=== PATIENT | male | born 1960 | race Two or more races ===

== ENCOUNTER 2016-08-23 11:52 | Emergency (ER) | payer OTHER ==
[~2016-08-23] VITALS: Ht 175.3 cm; Wt 77.1 kg
[~2016-08-23 11:52] MED LIST: CIPROFLOXACIN500 M2 ORAL; FLOMAX0.4 MG ORAL; IBUPROFEN600 MG ORAL; LEVAQUIN500 MG ORAL; NKM; NORCO 5-325 TA1 EACH ORAL; ONDANSETRON ODT4 MG ORAL
[2016-08-23 12:40] VITALS: BP 138/79
[2016-08-23 13:10] LABS: APPEARANCE,URINE CLEAR; KETONES,URINE NEGATIVE (NEGATIVE); LEUKOCYTE ESTERASE ,URINE 1+ (NEGATIVE); NITRITE,URINE NEGATIVE (NEGATIVE); PH,URINE 5 (4.5-8.0); PROTEIN,URINE NEGATIVE (NEGATIVE); UROBILINOGEN,URINE NORMAL MG/DL (0.0-1.0)
[2016-08-23 13:27] LABS: BACTERIA,URINE OCCASIONAL /HPF; CALCIUM OXALATE CRYSTALS,UR OCCASIONAL /LPF; SQUAMOUS EPITHELIAL CELL,UR OCCASIONAL /LPF (NONE/OCC)
--- NOTE | 2016-08-23 13:49 | Emergency Room Report ---
History of Present Illness General Chief Complaint: Pain Present Illness HPI 56-year-old male presents emergency department complaining of right-sided inguinal pain and right upper thigh pain x2 weeks. Patient denies nausea, vomiting, fevers, chills or abdominal pain. Patient reports that he took an Advil 2 days ago with minimal relief of his symptoms. Patient denies any appreciable fall, injury or strenuous activity. Patient denies constipation or diarrhea. he denies palpable mass in the inguinal area denies testicular pain. Pt is worried he may have UTI or appendicitis, denies frequency, urgency, dysuria, hematuria, or penile d/c. denies hx of STI or recent unprotect intercourse. He denies erythema or increased temperature palpation to the areas of his pain. Denies CP, Palpitations, LOC, AMS, dizziness, Changes in Vision, Sensation, paresthesias, or a sudden severe headache. Allergies: Coded Allergies: No Known Allergies (Unverified , 07/04/14) Patient History Past Medical History: see triage record Past Surgical History: none Pertinent Family History: none Reviewed Nursing Documentation: PMH: Agreed, PSxH: Agreed Nursing Documentation-PMH Hx Gastrointestinal Problems: Yes - KIDNEY STONES Review of Systems All Other Systems: negative except mentioned in HPI Physical Exam Vital Signs Date Time Temp Pulse Resp B/P Pulse Ox O2 Delivery O2 Flow Rate FiO2 08/23/16 12:01 98.1 76 16 138/79 98 Room Air Sp02 EP Interpretation: reviewed, normal General Appearance: no apparent distress, alert, GCS 15, non-toxic Head: normocephalic, atraumatic Eyes: bilateral eye PERRL, bilateral eye normal inspection ENT: hearing grossly normal, normal pharynx, no angioedema, normal voice Neck: full range of motion, supple/symm/no masses Respiratory: chest non-tender, lungs clear, normal breath sounds, speaking full sentences Cardiovascular #1: regular rate, rhythm, no edema Gastrointestinal: normal bowel sounds, non tender, soft, no mass, non-distended , no guarding, no hernia, no rebound Rectal: deferred Genitourinary: normal inspection, no CVA tenderness, penis normal, scrotum normal, other - no evidence of inguinal hernia, no evidence of femoral hernia. cremasteric reflex is present bilaterally, no testicular TTP, no erythema, no LAD Musculoskeletal: back normal, gait/station normal, normal range of motion, non- tender, no calf tenderness Neurologic: alert, oriented x3, responsive, motor strength/tone normal, sensory intact, speech normal Psychiatric: judgement/insight normal, memory normal, mood/affect normal, no suicidal/homicidal ideation Skin: normal color, no rash, warm/dry, well hydrated Lymphatic: no adenopathy Medical Decision Making PA Attestation Dr. Aparicio is my supervising Physician whom patient management has been discussed with. Diagnostic Impression: Primary Impression: Strain of right inguinal muscle Qualified Codes: S39.013A - Strain of muscle, fascia and tendon of pelvis, initial encounter Additional Impressions: Right inguinal pain Right thigh pain ER Course Pt. presents emergency department complaining of right-sided inguinal pain and right upper thigh pain x2 weeks, no fevers,chills, or erythema. Ddx considered but are not limited to Hernia, incarceration, LGV, gangrene, adenopathy, testicular torsion, epididymitis, orchitis, abscess, muscle strain Vital signs: are WNL, pt. is afebrile -Male teletype clerk: Emanuel -EMT present for PE. H&PE are most consistent with inguinal muscle strain /pain. This patient does not exhibit physical exam signs or symptoms that would indicate infection no obvious hernia is noted at this time. The testicles are uninvolved no evidence of torsion. Physical exam suggests musculoskeletal pain, most likely inguinal muscle strain. ORDERS: -UA: WNL no evidence of infection, evidence of contamination. - Testicular ultrasound not warranted as testicle is not involved based on PE. ED INTERVENTIONS: - none required at this time. - patient is stable for close outpatient follow up. - Discussed with patient that we'll be trying conservative treatment and to followup with his PCP for further evaluation if his symptoms continue. Discussed the patient's symptoms that would warrant immediate return to the emergency department. DISCHARGE: At this time pt. is stable for d/c to home. Will provide printed patient care instructions, and any necessary prescriptions. Care plan and follow up instructions have been discussed with the patient prior to discharge. Labs Test 08/23/16 12:55 Urine Color Pale yellow Urine Appearance Clear Urine pH 5 (4.5-8.0) Urine Specific [place] 1.025 (1.005-1.035) Urine Protein Negative (NEGATIVE) Urine Glucose (UA) Negative (NEGATIVE) Urine Ketones Negative (NEGATIVE) Urine Occult Blood 1+ (NEGATIVE) Urine Nitrite Negative (NEGATIVE) Urine Bilirubin Negative (NEGATIVE) Urine Urobilinogen Normal MG/DL (0.0-1.0) Urine Leukocyte Esterase 1+ (NEGATIVE) Urine RBC 2-4 /HPF (0 - 0) Urine WBC 2-4 /HPF (0 - 0) Urine Squamous Epithelial Cells Occasional /LPF Urine Calcium Oxalate Crystals Occasional /LPF (NONE) Urine Bacteria Occasional /HPF (NONE) Last Vital Signs Date Time Temp Pulse Resp B/P Pulse Ox O2 Delivery O2 Flow Rate FiO2 08/23/16 12:40 98.1 75 16 138/79 98 Room Air Disposition: HOME, SELF-CARE Condition: Stable Scripts Ibuprofen* (MOTRIN*) 600 Mg Tablet 600 MG ORAL THREE TIMES A DAY, #30 TAB 0 Refills Prov: Laurel Rodrigues 08/23/16 Patient Instructions: Muscle Strain Additional Instructions: Take medications as directed. Follow up with PCP in 3 days Return sooner to ED if new symptoms occur, or current symptoms become worse. Laurel Rodrigues Aug 23, 2016 13:49
[2016-08-23] MEDS ORDERED: IBUPROFEN600 MG ORAL (13:50)
[2016-08-23 13:55] VITALS: BP 134/75
[2016-08-23 13:56] VITALS: BP 134/75
== END 2016-08-23 13:55 | disposition home or self-care (01) ==
LOC: EMR 13:24
DX: S39.013A Strain of muscle, fascia and tendon of pelvis, initial encounter (principal); M79.651 Pain in right thigh; Z87.442 Personal history of urinary calculi; X58.XXXA Exposure to other specified factors, initial encounter; Y93.9 Activity, unspecified; Y92.9 Unspecified place or not applicable
CPT/HCPCS: 81003; 99282

== ENCOUNTER 2018-09-27 16:33 | Emergency (ER) | payer OTHER ==
[~2018-09-27] VITALS: Ht 175.3 cm; Wt 73.5 kg
--- NOTE | 2018-09-27 17:24 | NUR ---
ED Nurse Note: Pt came in from home due to to coughing with yellowish congestion, sorethroat, pain on L neck x 2 days. Pain 10/10 andrew. HR 105 upon arrival, PA aware. Will cont to monitor.
[2018-09-27 17:43] VITALS: BP 148/90
[2018-09-27] MEDS ORDERED: Lidocaine 2% Visc 15ml soln ORAL ONE (17:45)
[2018-09-27] MEDS ORDERED: Ketorolac 30mg Inj IM ONE (17:45)
[2018-09-27] MEDS ORDERED: CHILDREN'S160 MG/12 ORAL (17:57)
[2018-09-27] MEDS ORDERED: TAMIFLU75 MG ORAL (17:57)
[2018-09-27] MEDS ORDERED: CLARITIN10 M1 ORAL (17:57)
--- NOTE | 2018-09-27 17:57 | Emergency Room Report ---
History of Present Illness General Chief Complaint: Flu Like Symptoms Source: Patient Present Illness HPI 58-year-old male patient presents ER complaining of cough and flulike symptoms for 2 days. Reports sick contacts at home. Denies recent travel. Denies chest pain, shortness of breath. Denies history of heart attack or heart disease. Reports cough with sputum. Denies hemoptysis. Denies diarrhea or vomiting. States sore throat, reports pain with swallowing. Reports generalized aches and pains during this time. denies neck pain. Requesting liquid medication. Reports subjective fever and chills at home, currently afebrile in the ER. States his been taking [id number] medication for relief of symptoms.Denies other aggravating or relieving factors. Allergies: Coded Allergies: No Known Allergies (Unverified , 07/04/14) Patient History Past Medical History: see triage record Reviewed Nursing Documentation: PMH: Agreed; PSxH: Agreed Nursing Documentation-PMH Past Medical History: No Stated History Hx Gastrointestinal Problems: Yes - KIDNEY STONES Review of Systems All Other Systems: negative except mentioned in HPI Physical Exam Vital Signs Date Time Temp Pulse Resp B/P (MAP) Pulse Ox O2 Delivery O2 Flow Rate FiO2 09/27/18 16:43 98.1 105 16 143/88 97 Room Air Sp02 EP Interpretation: reviewed, normal General Appearance: well appearing, no apparent distress, alert, GCS 15, non- toxic Head: normocephalic, atraumatic Eyes: bilateral eye normal inspection, bilateral eye PERRL ENT: hearing grossly normal, normal pharynx, no angioedema, normal voice, TMs + canals normal, uvula midline, moist mucus membranes, nasal congestion, other - Uvula midline Neck: full range of motion, no meningismus, no bony tend Respiratory: lungs clear, normal breath sounds, no rhonchi, no respiratory distress, no accessory muscle use, no wheezing, speaking full sentences Cardiovascular #1: regular rate, rhythm, no edema Gastrointestinal: non tender, soft, no mass, non-distended, no guarding, no rebound Genitourinary: no CVA tenderness Musculoskeletal: back normal, digits/nails normal, gait/station normal, normal range of motion, non-tender Neurologic: alert, oriented x3, responsive, motor strength/tone normal, sensory intact Psychiatric: mood/affect normal Skin: no rash Lymphatic: no adenopathy Medical Decision Making PA Attestation Dr. Rendon is my supervising Physician whom patient management has been discussed with. Diagnostic Impression: Primary Impression: Influenza-like symptoms ER Course Pt presents to ED c/o cough, sore throat, flulike symptoms. DDX considered but are not limited to influenza, viral URI, pneumonia, strep throat, rhinitis, sinusitis, otitis media, otitis externa. VITAL SIGNS are WNL, patient is afebrile. ER COURSE: Provide with pain medication and viscous lidocaine. Lungs clear to auscultation, no wheezes, rhonci or rales. patient afebrile. Low suspicion for pneumonia, will not order CXR at this time. no tonsillar exudates, no pharyngeal erythema, history of cough, no fever, no stridor, uvula midline, low suspicion for peritonsillar abscess. Likely viral etiology of symptoms. Symptomatic treatment. drink plenty of fluids. Salt water gargles for sore throat. Followup with PCP for further treatment and/or referral as needed. Due to duration of symptoms, will provide patient with Tamiflu to cover for possible influenza-like infection. DISCHARGE: -Rx given for Claritin -Rx given for Motrin/Ibuprofen for fever/pain. -Rx given for Tamiflu for influenza. At this time pt is stable for d/c to home. Patient is resting comfortably, in no acute distress, nontoxic appearing. Patient to take medications as instructed Will provide with patient care instructions and any necessary prescriptions. Care plan and follow-up instructions provided. Patient instructed to follow-up with primary care provider in 3 - 5 days. Patient questions asked and answered. Patient reports understanding and agreement to treatment plan. ER precautions given. Patient instructed to return to ER immediately for any new or worsening of symptoms including but not limited to increasing SOB, persistent fever, intractable vomiting. - Please note that this Emergency Department Report was dictated using [employer] technology software, occasionally this can lead to erroneous entry secondary to interpretation by the dictation equipment. Last Vital Signs Date Time Temp Pulse Resp B/P (MAP) Pulse Ox O2 Delivery O2 Flow Rate FiO2 09/27/18 17:43 99.6 102 18 148/90 98 Room Air Status: improved Disposition: HOME, SELF-CARE Condition: Stable Scripts Loratadine (CLARITIN) 10 Mg Tab.rapdis 10 MG ORAL DAILY, #30 TAB Prov: Jose Enrique Art 09/27/18 Oseltamivir Phosphate (Tamiflu) 75 Mg Capsule 75 MG ORAL TWICE A DAY for 5 Days, #10 CAP Prov: Jose Enrique Art 09/27/18 Acetaminophen* (CHILDREN'S ACETAMINOPHEN*) 160 Mg/5 Ml Oral.susp 500 MG ORAL Q4H, #150 ML Prov: Jose Enrique Art 09/27/18 Referrals: [facility],REFERRING (PCP) Patient Instructions: Influenza, Adult, [id number] Additional Instructions: Followup with primary care provider in 3 -5 days. Salt water gargles Take Tylenol for pain and fever symptoms Drink plenty of water. Take medications as directed. Patient questions asked and answered. ER precautions given, patient instructed to return to ER immediately for any new or worsening of symptoms including but not limited to intractable vomiting, difficulty breathing, inability to eat. Jose Enrique Art Sep 27, 2018 17:57
[2018-09-27 18:07] VITALS: BP 148/90
--- NOTE | 2018-09-27 18:07 | NUR ---
ER DISCHARGE NOTE: Patient is cleared to be discharged per ERMD, pt is aox4, on room air, with stable vital signs. pt was given dc and prescription instructions, pt was able to verbalize understanding, pt id band removed. pt is able to ambulate with steady gait. pt took all belongings.
[2018-09-28] MEDS ORDERED: AUGMENTIN 875-1 EAC1 ORAL (07:13)
[2018-09-28] MEDS ORDERED: ACETAMINOPHEN-1 EAC1 ORAL (07:13)
[2018-09-28] MEDS ORDERED: IBUPROFEN600 MG ORAL (07:13)
== END 2018-09-27 18:07 | disposition home or self-care (01) ==
LOC: EMR 17:30
DX: J11.1 Influenza due to unidentified influenza virus with other respiratory manifestations (principal); Z87.442 Personal history of urinary calculi
CPT/HCPCS: 96372; 99283; J1885

== ENCOUNTER 2018-09-28 06:44 | Emergency (ER) | payer OTHER ==
[~2018-09-28] VITALS: Ht 175.3 cm; Wt 73.5 kg
[~2018-09-28 06:44] MED LIST changes: +CHILDREN'S160 MG/12 ORAL; +CLARITIN10 M1 ORAL; +TAMIFLU75 MG ORAL
[2018-09-28] MEDS ORDERED: Acetaminophen 500mg (ES) tab ORAL ONE (07:00)
[2018-09-28] MEDS ORDERED: Morphine Sulfate 2mg/ml Inj(IV/IM USE ONLY) IM ONE (07:00)
[2018-09-28] MEDS ORDERED: Augmentin 875mg Tab ORAL ONE (07:00)
[2018-09-28] MEDS ORDERED: Dexamethasone 4mg/ml vial IM ONE (07:00)
[2018-09-28] MEDS ORDERED: ACETAMINOPHEN-1 EAC1 ORAL (07:13)
[2018-09-28] MEDS ORDERED: AUGMENTIN 875-1 EAC1 ORAL (07:13)
[2018-09-28] MEDS ORDERED: IBUPROFEN600 MG ORAL (07:13)
--- NOTE | 2018-09-28 07:15 | NUR ---
ED Nurse Note: patient walked in by him self with steady gait, complaining of sore throat /, flu like symptoms. AAO x 4, skin is dry intact, warm to touch, patient has nonlabor breathing, no fever. per patient he was at [employer] yesterday and today he feels more soar throat, and discomfort to swalow.
--- NOTE | 2018-09-28 07:35 | NUR ---
ED Nurse Note: patient refused to take morphine since he will drive back home by him self.
[2018-09-28 07:36] VITALS: BP 135/75
--- NOTE | 2018-09-28 07:46 | NUR ---
ED Nurse Note: patient refused to take any oral medications since he has sore throat.
[2018-09-28 07:51] VITALS: BP 135/75
--- NOTE | 2018-09-28 07:53 | NUR ---
ED Nurse Note: patient was DC home with prescribed medications, AAO x 4, ambulatory, VSS at tis time, patient was educated, verbalised understanding. all belongings were given to the patient. arm band removed.
--- NOTE | 2018-09-28 08:16 | Emergency Room Report ---
History of Present Illness General Chief Complaint: Sore Throat Source: Patient Present Illness HPI 58-year-old male resents ED for evaluation. Patient complaining of sore throat 4 days. Pain is throbbing, 10 out of 10, nonradiating. Unable to swallow. Afebrile. States he was seen here yesterday for similar presentation. Was discharged with Tamiflu. States the symptoms are getting worse. No other aggravating relieving factors. Denies any other associated symptoms Allergies: Coded Allergies: No Known Allergies (Unverified , 07/04/14) Patient History Past Medical History: other - kidney stone Past Surgical History: none Pertinent Family History: none Social History: Denies: smoking, alcohol use, drug use Immunizations: UTD Reviewed Nursing Documentation: PMH: Agreed; PSxH: Agreed Nursing Documentation-PMH Hx Gastrointestinal Problems: Yes - KIDNEY STONES Review of Systems All Other Systems: negative except mentioned in HPI Physical Exam Vital Signs Date Time Temp Pulse Resp B/P (MAP) Pulse Ox O2 Delivery O2 Flow Rate FiO2 09/28/18 06:48 98.2 103 26 126/77 99 Room Air Sp02 EP Interpretation: reviewed, normal General Appearance: no apparent distress, alert, GCS 15, non-toxic Head: normocephalic Eyes: bilateral eye normal inspection, bilateral eye PERRL ENT: hearing grossly normal, no angioedema, normal voice, TMs + canals normal, uvula midline, pharyngeal erythema, tonsillar exudate Neck: full range of motion, supple, no meningismus, supple/symm/no masses Respiratory: normal inspection Cardiovascular #1: normal inspection Gastrointestinal: normal inspection Rectal: deferred Genitourinary: no CVA tenderness Musculoskeletal: normal inspection Neurologic: alert, oriented x3, responsive, motor strength/tone normal, sensory intact, speech normal Psychiatric: normal inspection Skin: normal inspection Lymphatic: normal inspection Medical Decision Making Diagnostic Impression: Primary Impression: Pharyngitis Qualified Codes: J02.9 - Acute pharyngitis, unspecified ER Course Hospital Course 58-year-old male presents to ED complaining of sore throat Differential diagnoses include: URI, pharyngitis, otitis media Clinical course Patient placed on stretcher. After initial history, physical exam reveals a middle aged male in no acute distress. Bilateral TM unremarkable. There is pharyngeal erythema w/ tonsillar exudates. + lymphadenopathy. I reviewed EMR. When patient was seen yesterday and there appeared to be no erythema or exudate. Consideration for pharyngitis. We will prescribe antibiotics Given Decadron here. Patient refused Tylenol antibiotics here because hurts to swallow. He will take his prescriptions today Safe for discharge and close outpatient follow-up. states he has a PMD Diagnosis - pharyngitis Stable and discharged home with prescriptions for motrin, augmentin, tylenol # 3. Instructed to followup with PMD. return to ED if symptoms recur or worsen Last Vital Signs Date Time Temp Pulse Resp B/P (MAP) Pulse Ox O2 Delivery O2 Flow Rate FiO2 09/28/18 07:51 99.0 1 8 135/75 100 Room Air Status: improved Disposition: HOME, SELF-CARE Condition: Stable Scripts Acetaminophen With Codeine (T#3) (TYLENOL #3 TAB*) Y Tab 1 TAB ORAL Q4H PRN for For Pain for 3 Days, TAB Prov: Laureano Ingram MD 09/28/18 Ibuprofen* (MOTRIN*) 600 Mg Tablet 600 MG ORAL Q8H PRN for For Pain, #30 TAB 0 Refills Prov: Laureano Ingram MD 09/28/18 Amoxicillin/Potassium Clav 875-125* (AUGMENTIN 875-125 TABLET*) 1 Each Tablet 1 TAB ORAL TWICE A DAY, #14 TAB Prov: Laureano Ingram MD 09/28/18 Patient Instructions: Pharyngitis, [id number] Additional Instructions: stop the tylenol childrens, take tylenol #3 for breakthrough pain. followup with your PMD Laureano Ingram MD Sep 28, 2018 08:16
== END 2018-09-28 07:55 | disposition home or self-care (01) ==
LOC: EMR 07:04
DX: J02.9 Acute pharyngitis, unspecified (principal); Z87.442 Personal history of urinary calculi
CPT/HCPCS: 96372; 99283; J1100

== ENCOUNTER 2018-10-02 12:57 | Emergency (ER) | payer OTHER ==
[~2018-10-02] VITALS: Ht 175.3 cm; Wt 73.5 kg
[~2018-10-02 12:57] MED LIST changes: +ACETAMINOPHEN-1 EAC1 ORAL; +AUGMENTIN 875-1 EAC1 ORAL
[2018-10-02 13:12] VITALS: BP 136/82
--- NOTE | 2018-10-02 13:12 | NUR ---
ED Nurse Note: Pt came in due to URI and coughing with productive phlegm. Pt states the medication augmentin is not helping him. Denies CP or SOB.
[2018-10-02] MEDS ORDERED: PROMETHAZINE-C118 M1 ORAL (13:57)
[2018-10-02 14:06] VITALS: BP 132/76
--- NOTE | 2018-10-02 14:06 | NUR ---
ED Nurse Note: pt cleared to be d/c per ER provider, pt discharge and aftercare instruction provided w/ prescription, pt advised to follow up with pcp or return to ed if sx worsen or new sx develop, pt education done via discussion and handout, pt verbalized understanding and agrees with plan, pt vss, ambulatory w/ steady gait, resp even and unlabored on RA, wristband removed, all belongings left w/pt.
--- NOTE | 2018-10-02 18:16 | Emergency Room Report ---
History of Present Illness General Chief Complaint: Upper Respiratory Illness Source: Patient Present Illness HPI The patient is a 58-year-old male presenting for continued cough. He was seen in this emergency department approximately one week prior and diagnosed with pharyngitis. He was given prescription for Augmentin. He states that his sore throat has improved significantly and fever has reduced completely. He is complaining of continued cough. He is taking the antibiotics as prescribed. Pain is a 3 out of 10 dull ache to the throat and does not radiate. Worse with cough. He denies any recent travel. He denies any other symptoms Allergies: Coded Allergies: No Known Allergies (Unverified , 07/04/14) Patient History Past Medical History: see triage record Pertinent Family History: none Reviewed Nursing Documentation: PMH: Agreed; PSxH: Agreed Nursing Documentation-PMH Past Medical History: No History, Except For Hx Gastrointestinal Problems: Yes - KIDNEY STONES Review of Systems All Other Systems: negative except mentioned in HPI Physical Exam Vital Signs Date Time Temp Pulse Resp B/P (MAP) Pulse Ox O2 Delivery O2 Flow Rate FiO2 10/02/18 13:02 98.1 90 18 136/82 98 Room Air Sp02 EP Interpretation: reviewed, normal General Appearance: no apparent distress, alert, GCS 15, non-toxic Head: normocephalic, atraumatic Eyes: bilateral eye normal inspection, bilateral eye PERRL ENT: hearing grossly normal, no angioedema, normal voice, uvula midline, pharyngeal erythema Respiratory: chest non-tender, lungs clear, normal breath sounds, speaking full sentences Cardiovascular #1: regular rate, rhythm, no edema Musculoskeletal: back normal, gait/station normal, normal range of motion, non- tender Neurologic: alert, oriented x3, responsive, motor strength/tone normal, sensory intact, speech normal Psychiatric: judgement/insight normal, memory normal, mood/affect normal, no suicidal/homicidal ideation Skin: normal color, no rash, warm/dry, well hydrated Lymphatic: no adenopathy Medical Decision Making PA Attestation Dr. Davidson is my supervising physician. Patient management was discussed with my supervising physician Diagnostic Impression: Primary Impression: Pharyngitis Qualified Codes: J02.9 - Acute pharyngitis, unspecified ER Course The patient is a 58-year-old male presenting for continued cough Differential diagnosis include but not limited to pharyngitis, sinusitis, AOM, bronchitis, PNA, among others PE: Afebrile. No apparent distress HEENT exam reveals pharyngeal erythema. No tonsillar exudate or edema. No lymphadenopathy Lungs are clear to auscultation bilaterally Chest x-ray unremarkable The patient is to continue taking antibiotics as prescribed. He is given prescription for cough medication. He was told to follow-up with his primary doctor as soon as possible. ER precautions given Chest X-Ray Diagnostic Results Chest X-Ray Diagnostic Results : Chest X-Ray Ordered: Yes # of Views/Limited/Complete: 1 View, Limited Indication: Other - cough EP Interpretation: Yes LUANA Xray: Interpretation reviewed, by supervising MD, and agrees with findings. Interpretation: no consolidation, no effusion, no pneumothorax, no acute cardiopulmonary disease Impression: No acute disease Electronically Signed by: Rinku Flynn PA-C Last Vital Signs Date Time Temp Pulse Resp B/P (MAP) Pulse Ox O2 Delivery O2 Flow Rate FiO2 10/02/18 14:06 98.1 73 18 132/76 98 Room Air Status: improved Disposition: HOME, SELF-CARE Condition: Improved Scripts Codeine/Promethazine Hcl* (PROMETHAZINE-CODEINE SYRUP*) 118 Ml Syrup 5 ML ORAL Q6H PRN for For Cough, #118 ML 0 Refills Prov: RINKU FLYNN 10/02/18 Referrals: NON PHYSICIAN (PCP) Patient Instructions: Upper Respiratory Infection, Adult Additional Instructions: I discussed my findings with the patient. All questions and concerns have been answered. Treatment and medication compliance have been addressed. I advised the patient that they need to follow up with PMD in 3-5 days. Return to ED if pain remains or worsens, cough worsens or remains, you notice blood in your sputum, you notice wheezing, you experience a fever, or if needed for any reason. Patient verbalized understanding of discharge instructions. RINKU FLYNN Oct 02, 2018 18:16
--- NOTE | 2018-10-03 11:32 | Diagnostic Imaging Report ---
Indication: Cough Technique: One view of the chest Comparison: none Findings: Lungs and pleural spaces are clear. Heart size is normal Impression: No acute process
== END 2018-10-02 14:06 | disposition home or self-care (01) ==
LOC: EMR 13:37
DX: J02.9 Acute pharyngitis, unspecified (principal); Z87.442 Personal history of urinary calculi
CPT/HCPCS: 71045; 99283

== ENCOUNTER → 2019-08-17 | Emergency (ER) | payer OTHER ==
[~2019-08-17] VITALS: Ht 175.3 cm; Wt 74.8 kg
[~2019-08-17] MED LIST changes: +IBUPROFEN800 MG ORAL; +PROMETHAZINE-C118 M1 ORAL
[2019-08-17 14:10] VITALS: BP 125/80
--- NOTE | 2019-08-17 15:54 | Diagnostic Imaging Report ---
. Indication: Right arm pain Technique: Grayscale and duplex images of the right upper extremity veins Comparison: none Findings: Grayscale and duplex images demonstrate no evidence of intraluminal thrombus. Normal phasic Doppler waveforms, demonstrating no evidence of valvular insufficiency. Normal compressibility. Impression: Negative for evidence of right upper extremity venous thrombosis.
--- NOTE | 2019-08-17 16:09 | Emergency Room Report ---
History of Present Illness General Chief Complaint: Pain Source: Patient Present Illness HPI This patient states that he has noticed an area of swelling on his R. hand posteriorly. He states that he noticed a swollen vein and it is very tender to palpation. He lucia arm pain. He states that his hand sometimes hurts and it comes and goes. He denies weakness, tingling, numbness, redness, fever, trauma. He has no other complaints. Allergies: Coded Allergies: No Known Allergies (Unverified , 07/04/14) Patient History Past Medical History: none, see triage record Social History: Denies: smoking, alcohol use, drug use Reviewed Nursing Documentation: PMH: Agreed; PSxH: Agreed Nursing Documentation-PMH Past Medical History: No History, Except For Hx Gastrointestinal Problems: Yes - KIDNEY STONES Review of Systems All Other Systems: negative except mentioned in HPI Physical Exam Vital Signs Date Time Temp Pulse Resp B/P (MAP) Pulse Ox O2 Delivery O2 Flow Rate FiO2 08/17/19 14:10 97.5 97 16 125/80 (95) 97 Room Air Sp02 EP Interpretation: reviewed, normal General Appearance: no apparent distress, alert, GCS 15, non-toxic Head: normocephalic, atraumatic Eyes: bilateral eye normal inspection, bilateral eye PERRL ENT: hearing grossly normal, normal pharynx, no angioedema, normal voice Neck: full range of motion, supple/symm/no masses Respiratory: no respiratory distress, no retraction, no accessory muscle use, speaking full sentences Rectal: deferred Musculoskeletal: back normal, normal range of motion, gait/station normal, tender - R. posterior Hand with Area of venous swelling and tenderness. No edema. No erythema. Neurologic: alert, motor strength/tone normal, oriented x3, sensory intact, responsive, speech normal Psychiatric: judgement/insight normal, memory normal, mood/affect normal, no suicidal/homicidal ideation Reflexes: 3+ bicep (R), 3+ bicep (L), 3+ tricep (R), 3+ tricep (L), 3+ knee (R) , 3+ knee (L) Lymphatic: no adenopathy Medical Decision Making Diagnostic Impression: Primary Impression: Thrombophlebitis ER Course Has findings on exam consistent of superficial thrombophlebitis. The patient did undergo ultrasound of the right upper extremity as a precaution. This was unremarkable. Is benign. There is no evidence of infection or cellulitis. This is a very localized area. I also suspect the patient has an underlying osteoarthritis. He was educated to follow-up with his primary care physician. He is given close return precautions and follow-up instructions. CT/MRI/US Diagnostic Results CT/MRI/US Diagnostic Results : Imaging Test Ordered: US RUE Impression Normal exam. Last Vital Signs Date Time Temp Pulse Resp B/P (MAP) Pulse Ox O2 Delivery O2 Flow Rate FiO2 08/17/19 14:10 97.5 97 16 125/80 (95) 97 Room Air Status: improved Disposition: HOME, SELF-CARE Condition: Improved Amy Rendon DO Aug 17, 2019 16:09
== END | disposition home or self-care (01) ==
LOC: EMR 14:30
DX: I80.8 Phlebitis and thrombophlebitis of other sites (principal); Z87.442 Personal history of urinary calculi
CPT/HCPCS: 93931; Z7502; 99284

== ENCOUNTER 2019-09-17 02:15 | Emergency (ER) | payer OTHER ==
[~2019-09-17] VITALS: Ht 175.3 cm; Wt 74.8 kg
[2019-09-17 02:46] VITALS: BP 130/83
--- NOTE | 2019-09-17 02:47 | NUR ---
ED Nurse Note: Patient walked in to ER c/o cough with yellow phlegm x one week. Pt stated he was prescribed azithromycin 250mg and finished the last pill in AM. Pt stated not effective. Patient presented AAO x4, VSS at this time.
[2019-09-17] MEDS ORDERED: PROMETHAZINE-C118 M1 ORAL (03:14)
[2019-09-17] MEDS ORDERED: ALBUTEROL SULF8.5 GM INH (03:14)
[2019-09-17 03:18] VITALS: BP 130/83
--- NOTE | 2019-09-17 03:19 | NUR ---
ED Nurse Note: Pt cleared by health care Provider for discharge. DC instructions/prescription was given and explained to pt and verbalized understanding of teachings. All medical deviecs such as ID band removed. Pt is AAO x4, ambulatory and left with all personal belongings.
--- NOTE | 2019-09-17 04:27 | Emergency Room Report ---
History of Present Illness General Chief Complaint: Upper Respiratory Illness Source: Patient Present Illness HPI 59-year-old male presents ED for evaluation. Complaining of cough x1 week. Cough is dry. Worse at night. Denies fevers or chills. Denies chest pain. States that he had a Z-Kamlesh in his cabinet which she started and completed the prescription. States it did not help his symptoms. Denies sick contacts or recent travel. No other aggravating relieving factors. Denies any other associated symptoms Allergies: Coded Allergies: No Known Allergies (Unverified , 07/04/14) Patient History Past Medical History: other - kidney stones Past Surgical History: none Pertinent Family History: none Social History: Denies: smoking, alcohol use, drug use Immunizations: UTD Reviewed Nursing Documentation: PMH: Agreed; PSxH: Agreed Nursing Documentation-PMH Hx Gastrointestinal Problems: Yes - KIDNEY STONES Review of Systems All Other Systems: negative except mentioned in HPI Physical Exam Vital Signs Date Time Temp Pulse Resp B/P (MAP) Pulse Ox O2 Delivery O2 Flow Rate FiO2 09/17/19 02:20 98.2 79 16 130/83 (99) 96 Room Air Sp02 EP Interpretation: reviewed, normal General Appearance: no apparent distress, alert, GCS 15, non-toxic Head: normocephalic, atraumatic Eyes: bilateral eye normal inspection, bilateral eye PERRL ENT: hearing grossly normal, normal pharynx, no angioedema, normal voice Neck: full range of motion, supple/symm/no masses Respiratory: chest non-tender, lungs clear, normal breath sounds, speaking full sentences Cardiovascular #1: regular rate, rhythm, no edema Cardiovascular #2: 2+ carotid (R), 2+ carotid (L), 2+ radial (R), 2+ radial (L) , 2+ dorsalis pedis (R), 2+ dorsalis pedis (L) Gastrointestinal: normal bowel sounds, non tender, soft, non-distended, no guarding, no rebound Rectal: deferred Genitourinary: normal inspection, no CVA tenderness Musculoskeletal: back normal, normal range of motion, gait/station normal, non- tender Neurologic: alert, motor strength/tone normal, oriented x3, sensory intact, responsive, speech normal Psychiatric: judgement/insight normal, memory normal, mood/affect normal, no suicidal/homicidal ideation Reflexes: 3+ bicep (R), 3+ bicep (L), 3+ tricep (R), 3+ tricep (L), 3+ knee (R) , 3+ knee (L) Lymphatic: no adenopathy Medical Decision Making Diagnostic Impression: Primary Impression: Bronchitis ER Course Hospital Course 59 yo M presents with cough x 1 week Differential diagnoses include: URI, pharyngitis, otitis media, asthma Clinical course Patient placed on stretcher. After initial history, physical exam reveals a middle aged male in no acute distress. Bilateral TM unremarkable. No pharyngeal erythema. No tonsillar exudates. No lymphadenopathy. lungs clear. abdomen soft. I discussed findings with patient. Course is viral. Likely bronchitis. I explained that this is why the antibiotics did not help. Will prescribe inhaler , cough medication. Patient afebrile, vitals stable. Safe for discharge with close outpatient follow-up. Diagnosis - bronchitis Stable and discharged home with Rx albuterol, promethazine/codeine. Instructed to followup with PMD. Return to ED if symptoms recur or worsen Last Vital Signs Date Time Temp Pulse Resp B/P (MAP) Pulse Ox O2 Delivery O2 Flow Rate FiO2 09/17/19 03:18 98.2 16 130/83 96 Room Air 09/17/19 02:46 79 Status: improved Disposition: HOME, SELF-CARE Condition: Stable Scripts Codeine/Promethazine Hcl* (PROMETHAZINE-CODEINE SYRUP*) 118 Ml Syrup 5 ML ORAL Q6H PRN for For Cough, #118 ML 0 Refills Prov: Laureano Ingram MD 09/17/19 Albuterol Sulfate* (ALBUTEROL SULFATE MDI*) 8.5 Gm Hfa.aer.ad 2 PUFF INH Q6H, #1 EA 0 Refills Prov: Laureano Ingram MD 09/17/19 Patient Instructions: Acute Bronchitis, [id number] Laureano Ingram MD Sep 17, 2019 04:27
== END 2019-09-17 03:19 | disposition home or self-care (01) ==
LOC: EMR 02:40
DX: J20.9 Acute bronchitis, unspecified (principal)
CPT/HCPCS: 99282

== ENCOUNTER 2020-10-03 10:31 | Emergency (ER) | payer OTHER ==
[~2020-10-03] VITALS: Ht 175.3 cm; Wt 72.6 kg
[~2020-10-03 10:31] MED LIST changes: +ALBUTEROL SULF8.5 GM INH
--- NOTE | 2020-10-03 11:03 | NUR ---
pt arrived for cough. pt states dizziness, body aches, fatigue, nausea 1.5m ago which improved after taking azithromycin. pt now states lingering increasing wet cough with yellow/white mucus. pt taking robitussin & theraflu. pt denies COX. pt denies head/nasal pressure, denies nasal congestion, denies vomiting. pt denies SOB. pt denies pmh, denies allergies.
[2020-10-03 11:04] VITALS: BP 133/83
[2020-10-03] MEDS ORDERED: PREDNISONE20 MG ORAL (11:16)
[2020-10-03] MEDS ORDERED: ZITHROMAX250 MG ORAL (11:16)
[2020-10-03] MEDS ORDERED: ALBUTEROL SULF8.5 G1 INH (11:16)
--- NOTE | 2020-10-03 11:20 | Emergency Room Report ---
History of Present Illness General Chief Complaint: Upper Respiratory Illness Source: Patient Present Illness HPI Disclaimer: Please note that this report is being documented using DRAGON technology. This can lead to erroneous entry secondary to incorrect interpretation by the dictating instrument. HPI: 68-year-old male presents with a cough. He has had a intermittently productive cough for the past 10 days. Worse at night. Denies any shortness of breath or fevers. Denies any headache nausea vomiting or diarrhea. Patient had similar symptoms about a month ago. But did not get tested for Covid. He denies any sick contacts. Again denies any fevers. Allergies: Coded Allergies: No Known Allergies (Unverified , 10/03/20) COVID-19 Screening Contact w/high risk pt: No Experienced COVID-19 symptoms?: Yes COVID-19 Testing performed CHEMICAL DEPENDENCY PROFESSIONAL: No Patient History Reviewed Nursing Documentation: PMH: Agreed; PSxH: Agreed Nursing Documentation-PM Past Medical History: No Stated History Hx Gastrointestinal Problems: Yes - KIDNEY STONES Review of Systems All Other Systems: negative except mentioned in HPI Physical Exam Vital Signs Date Time Temp Pulse Resp B/P (MAP) Pulse Ox O2 Delivery O2 Flow Rate FiO2 10/03/20 10:49 97.9 78 18 133/83 (100) 97 Room Air 10/03/20 11:04 96 Sp02 EP Interpretation: reviewed, normal General Appearance: well appearing, no apparent distress Head: normocephalic, atraumatic Eyes: bilateral eye PERRL, bilateral eye EOMI ENT: hearing grossly normal, moist mucus membranes Neck: full range of motion, supple Respiratory: lungs clear, normal breath sounds, no rhonchi, no respiratory distress, no retraction, no wheezing Cardiovascular #1: normal peripheral pulses, regular rate, rhythm, no murmur Gastrointestinal: non tender, soft, non-distended, no guarding Neurologic: alert, oriented x3, no focal defects Skin: normal color, warm/dry Medical Decision Making Diagnostic Impression: Primary Impression: Bronchitis ER Course Differential diagnosis included but not limited to COVID-19, URI, bronchitis, seasonal allergy to name a few. Patient in acute distress on exam. Nontoxic-appearing. Patient was not hypoxic. He was afebrile. His cough is worse at night. I do suspect a mild bronchitis. It could be post Covid as well. Unfortunately his previous Covid test was inconclusive. At this time will discharge with inhaler, p.o. prednisone, azithromycin. Patient will go have a outpatient coronavirus test. Stable for discharge Last Vital Signs Date Time Temp Pulse Resp B/P (MAP) Pulse Ox O2 Delivery O2 Flow Rate FiO2 10/03/20 11:04 78 18 Room Air 96 10/03/20 11:04 97.8 133/83 96 Disposition: HOME, SELF-CARE Scripts D-Methorphan Hb/Prometh Hcl* (PROMETHAZINE-DM SYRUP*) 118 Ml Syrup 5 ML ORAL Q6H PRN for For Cough, #100 ML 0 Refills Prov: Jorge L Sepulveda M.D. 10/03/20 Prednisone* (PREDNISONE*) 20 Mg Tablet 40 MG ORAL DAILY, #8 TAB Prov: Jorge L Sepulveda M.D. 10/03/20 Azithromycin* (ZITHROMAX*) 250 Mg Tablet 250 MG ORAL DAILY, #6 TAB 0 Refills Take two tables once daily for 1 day, then one tablet once daily for 4 days. Prov: Jorge L Sepulveda M.D. 10/03/20 Albuterol Sulfate* (Albuterol Sulfate Hfa*) 8.5 Gm Hfa.aer.ad 2 PUFF INH Q6H PRN for For Cough, #1 INH Prov: Jorge L Sepulveda M.D. 10/03/20 Patient Instructions: Acute Bronchitis, [id number] Additional Instructions: Patient is instructed to follow-up with her primary care doctor, primary care clinic or [facility] in 1 to 2 days. Patient instructed to return for any worsening symptoms or concerns. Jorge L Sepulveda M.D. Oct 03, 2020 11:20
[2020-10-03] MEDS ORDERED: PROMETHAZINE-D118 ML ORAL (11:22)
[2020-10-03 11:33] VITALS: BP 114/68
== END 2020-10-03 11:44 | disposition home or self-care (01) ==
LOC: EMR 10:46
DX: J40 Bronchitis, not specified as acute or chronic (principal); Z87.442 Personal history of urinary calculi
CPT/HCPCS: 99282